=== PATIENT | female | born 1985 | race Caucasian/White ===

== ENCOUNTER 2024-11-23 04:28 | Emergency (ER) | payer OTHER ==
[~2024-11-23] VITALS: Ht 172.7 cm; Wt 95.2 kg
[2024-11-23] MEDS ORDERED: DiphenhydrAMINE HCl 50 MG/ML 1ML Vial IV ONE (04:50)
[2024-11-23] MEDS ORDERED: Prochlorperazine Edisylate 10 mg Vial IV ONE (04:50)
[2024-11-23] MEDS ORDERED: Ketorolac Tromethamine 15mg Vial IV ONE (04:50)
[2024-11-23] MEDS ORDERED: NS 1,000 ML IV SCH (04:50)
[2024-11-23] MEDS ORDERED: IBUP600 PO (05:48)
[2024-11-23] MEDS ORDERED: ACET500 PO (05:48)
== END 2024-11-23 06:30 | disposition home or self-care (01) ==
LOC: EDBD 04:28 → ER 04:28
DX: G43.909 Migraine, unspecified, not intractable, without status migrainosus (principal)
CPT/HCPCS: 96374; 96375; 99282-25; A9270; J0780; J1200; J1885; J7030